=== PATIENT | female | born 2000 | race African-American/Black ===

== ENCOUNTER 2020-02-16 13:52 | Emergency (ER) | payer MEDICAID ==
[~2020-02-16] VITALS: Ht 167.6 cm; Wt 75.0 kg
[2020-02-16] MEDS: ONDANSETRON HCL 4 MG/2 ML VIAL IVP ONE (14:33)
[2020-02-16] MEDS: SODIUM CHLORIDE 0.9% 1,000 ML IV ONE (14:34)
[2020-02-16 14:39] LABS: BASOPHILS % (AUTO) 0.2 % (0.0-2.0); EOSINOPHILS % (AUTO) 1.7 % (1.0-6.0); HEMATOCRIT 40.1 % (36-46); HEMOGLOBIN 13.3 g/dL (12.0-16.0); LYMPHOCYTES # (AUTO) 1.3 K/uL (1.0-4.8); LYMPHOCYTES % (AUTO) 24.2 % (22.0-44.0); MEAN CORPUSCULAR HEMOGLOBIN 28.9 pg (26.0-34.0); MEAN CORPUSCULAR VOLUME 88 fL (80-100); MONOCYTES # (AUTO) 0.9 K/uL (0.1-1.0); MONOCYTES % (AUTO) 17.2 % (2.0-9.0); NEUTROPHILS % (AUTO) 56.7 % (40.0-70.0); PLATELET COUNT (AUTO) 321 K/uL (150-450); RED BLOOD CELL COUNT(AUTO) 4.58 MIL/uL (4.00-5.20); RED CELL DISTRIBUTION WIDTH 14.9 % (11.5-14.5)
[2020-02-16 14:57] LABS: ANION GAP 10 mmol/L (8-16); CALCIUM, TOTAL 9.2 mg/dL (8.8-10.5); CARBON DIOXIDE 24 mmol/L (22-29); CHLORIDE 102 mmol/L (98-107); CREATININE 0.81 mg/dL (0.60-1.30); GLOMERULAR FILTR. RATE CALC > 60 mL/min (>60); GLUCOSE,RANDOM 103 mg/dL (70-110); POTASSIUM 3.5 mmol/L (3.5-5.1); SODIUM SERUM 136 mmol/L (136-145); UREA NITROGEN, BLOOD 11 mg/dL (7-18)
[2020-02-16] MEDS: MAG HYDROX/AL HYDROX/SIMETH ES 30 ML SUSPENSION UDCUP PO ONE (15:12)
[2020-02-16] MEDS: ACETAMINOPHEN 500 MG TABLET PO ONE (15:13)
[2020-02-16 15:21] LABS: ALANINE AMINOTRANSFERASE 17 U/L (12-78); ALBUMIN 3.9 g/dL (3.4-5.0); ALKALINE PHOSPHATASE 92 U/L (46-116); ASPARTATE AMINOTRANSFERASE 20 U/L (15-37); BILIRUBIN,TOTAL 0.4 mg/dL (0.1-1.0); HCG,QUANTITATIVE < 1 mIU/mL (0-6); LIPASE 420 U/L (73-393); TOTAL PROTEIN, SERUM 7.9 g/dL (6.4-8.2)
[2020-02-16 16:18] VITALS: BP 127/78
== END 2020-02-16 16:29 | disposition home or self-care (01) ==
LOC: EMS 14:01
DX: K29.00 Acute gastritis without bleeding (principal); R11.2 Nausea with vomiting, unspecified; E86.0 Dehydration
CPT/HCPCS: 36415; 80053; 83690; 84702; 85025; 96361; 96374; 99283; J2405; J7030

== ENCOUNTER 2023-06-16 17:10 | Emergency (ER) | payer MEDICAID ==
[~2023-06-16] VITALS: Ht 165.1 cm; Wt 109.1 kg
[2023-06-16 19:18] VITALS: BP 128/74; PULSE 69; RESP 18; TEMP 98.6
[2023-06-16] MEDS ORDERED: IBUP-1492 PO (19:19)
== END 2023-06-16 19:51 | disposition home or self-care (01) ==
LOC: EMS 17:10
DX: F41.9 Anxiety disorder, unspecified (principal); R07.89 Other chest pain
CPT/HCPCS: 93005; 99284; Z7502

== ENCOUNTER 2024-08-26 16:31 | Emergency (ER) | payer SELFPAY ==
[~2024-08-26] VITALS: Ht 162.6 cm; Wt 104.5 kg
[~2024-08-26 16:31] MED LIST: ACET-3385 PO; IBUP-1492 PO
[2024-08-26 16:36] VITALS: BP 127/73; PULSE 111; RESP 18; TEMP 99.5; O2SAT 100
[2024-08-26 17:12] LABS: COVID AG,FIA SOURCE NASAL SWAB
[2024-08-26 17:32] LABS: SARS-COV2 (COVID) ANTIGEN,FIA Negative (Negative)
[2024-08-26 17:33] LABS: INFLUENZA TYPE B NEGATIVE FOR TYPE B (NEGATIVE)
[2024-08-26 18:02] LABS: INFLUENZA TYPE A POSITIVE FOR TYPE A (NEGATIVE)
[2024-08-26] MEDS ORDERED: GUAIFDM PO (18:32)
[2024-08-26] MEDS ORDERED: IBUP-1554 PO (18:32)
[2024-08-26] MEDS ORDERED: ACET-66 PO (18:32)
[2024-08-26] MEDS: GuaiFENesin/D-METHORPHAN [SUGAR-FREE] 200-20MG/10 ML SYRUP UDCUP PO ONE (18:43)
[2024-08-26] MEDS: ACETAMINOPHEN 500 MG TABLET PO ONE (18:43)
[2024-08-26] MEDS ORDERED: ALBU18HF12 IH (19:04)
== END 2024-08-26 18:52 | disposition home or self-care (01) ==
LOC: EMS 16:31
DX: J10.1 Influenza due to other identified influenza virus with other respiratory manifestations (principal); Z20.822 Contact with and (suspected) exposure to COVID-19
CPT/HCPCS: 87804; 99283

== ENCOUNTER 2025-04-09 23:49 | Emergency (ER) | payer OTHER ==
[~2025-04-09] VITALS: Ht 162.6 cm; Wt 100.0 kg
[~2025-04-09 23:49] MED LIST changes: -ACET-3385 PO; +ACET-66 PO; +ALBU18HF12 IH; +GUAIFDM PO; -IBUP-1492 PO; +IBUP-1554 PO
[2025-04-10 00:25] LABS: PLATELET COUNT (AUTO) 299 K/uL (150-450); RED BLOOD CELL COUNT(AUTO) 4.08 MIL/uL (4.00-5.20); RED CELL DISTRIBUTION WIDTH 15.4 % (11.5-14.5); WHITE BLOOD COUNT (AUTO) 6.5 K/uL (4.5-11.0)
[2025-04-10 00:32] LABS: CALCIUM, TOTAL 9.5 mg/dL (8.8-10.5); CREATININE 1.02 mg/dL (0.60-1.30); GLOMERULAR FILTR. RATE CALC > 60 mL/min (>60); GLUCOSE,RANDOM 90 mg/dL (70-110); SODIUM SERUM 139 mmol/L (136-145); UREA NITROGEN, BLOOD 12 mg/dL (7-18)
[2025-04-10 00:43] LABS: HCG,QUANTITATIVE < 1 mIU/mL (0-6)
[2025-04-10 00:57] LABS: APPEARANCE,URINE HAZY (CLEAR); GLUCOSE, URINE (UA) NEGATIVE (NEGATIVE); LEUKOCYTE ESTERASE ,URINE LARGE (NEGATIVE); NITRATE,URINE NEGATIVE (NEGATIVE); OCCULT BLOOD,URINE MODERATE (NEGATIVE); SPECIFIC GRAVITIY, URINE 1.032 (1.003-1.030)
[2025-04-10 01:02] LABS: ASPARTATE AMINOTRANSFERASE 20.0 U/L (15-37); TOTAL PROTEIN, SERUM 7.4 g/dL (6.4-8.2)
[2025-04-10 01:14] LABS: SQUAMOUS EPITHELIAL CELL,UR Few /LPF (None Seen)
[2025-04-10] MEDS: KETOROLAC TROMETHAMINE 30 MG/ML VIAL IVP ONE (01:31)
[2025-04-10] MEDS: ONDANSETRON HCL 4 MG/2 ML VIAL IVP ONE (01:31)
[2025-04-10] MEDS: FentaNYL CITRATE PF 100 MCG/2 ML VIAL IVP ONE (01:43)
[2025-04-10] MEDS: CefTRIAXone 1 GM/DEXTROSE 50 ML IV ONE (01:43)
[2025-04-10] MEDS ORDERED: IBUP-1554 PO (02:06)
[2025-04-10] MEDS ORDERED: CEPH-558 PO (02:06)
[2025-04-10] MEDS ORDERED: ONDA-104 PO (02:06)
[2025-04-10 02:17] VITALS: BP 141/83; PULSE 78; RESP 22; TEMP 97.8; O2SAT 100
== END 2025-04-10 02:37 | disposition home or self-care (01) ==
LOC: EMS 23:49
DX: K80.20 Calculus of gallbladder without cholecystitis without obstruction (principal); N39.0 Urinary tract infection, site not specified; R10.11 Right upper quadrant pain; Z79.899 Other long term (current) drug therapy
CPT/HCPCS: 99285; 80048; 80076; 81001; 83690; 84702; 85025; 87086; 36415; 96365; 96375; 76700; J1885; J0696; J3010; J2405

== ENCOUNTER 2025-05-22 18:10 | Emergency (ER) | payer OTHER ==
[~2025-05-22] VITALS: Ht 162.6 cm; Wt 107.0 kg
[~2025-05-22 18:10] MED LIST changes: +CEPH-558 PO; +ONDA-104 PO
[2025-05-22 18:20] VITALS: BP 117/62; PULSE 74; RESP 18; TEMP 98.2; O2SAT 100
[2025-05-22 19:43] LABS: HCG,QUAL URINE NEGATIVE (NEGATIVE)
[2025-05-22 19:44] LABS: APPEARANCE,URINE HAZY (CLEAR); GLUCOSE, URINE (UA) NEGATIVE (NEGATIVE); LEUKOCYTE ESTERASE ,URINE LARGE (NEGATIVE); NITRATE,URINE NEGATIVE (NEGATIVE); OCCULT BLOOD,URINE SMALL (NEGATIVE); SPECIFIC GRAVITIY, URINE 1.033 (1.003-1.030)
[2025-05-22 20:19] LABS: SQUAMOUS EPITHELIAL CELL,UR Few /LPF (None Seen)
[2025-05-22 20:19] LABS: PLATELET COUNT (AUTO) 311 K/uL (150-450); RED BLOOD CELL COUNT(AUTO) 4.04 MIL/uL (4.00-5.20); RED CELL DISTRIBUTION WIDTH 16.2 % (11.5-14.5); WHITE BLOOD COUNT (AUTO) 7.1 K/uL (4.5-11.0)
[2025-05-22 20:29] LABS: CALCIUM, TOTAL 9.2 mg/dL (8.8-10.5); CREATININE 0.77 mg/dL (0.60-1.30); GLOMERULAR FILTR. RATE CALC > 60 mL/min (>60); GLUCOSE,RANDOM 90 mg/dL (70-110); SODIUM SERUM 137 mmol/L (136-145); UREA NITROGEN, BLOOD 14 mg/dL (7-18)
[2025-05-22 20:33] LABS: ASPARTATE AMINOTRANSFERASE 18.0 U/L (15-37); TOTAL PROTEIN, SERUM 7.5 g/dL (6.4-8.2)
[2025-05-22] MEDS: SODIUM CHLORIDE 0.9% 1,000 ML IV ONE (22:19)
[2025-05-22] MEDS: FAMOTIDINE 20 MG/2 ML VIAL IVP ONE (22:19)
[2025-05-22] MEDS: CEPHALEXIN MONOHYDRATE 500 MG CAPSULE PO ONE (23:37)
[2025-05-23] MEDS ORDERED: CEPH-558 PO (00:51)
[2025-05-23] MEDS ORDERED: FAMO20 PO (00:51)
== END 2025-05-23 01:08 | disposition home or self-care (01) ==
LOC: EMS 18:24
DX: K80.70 Calculus of gallbladder and bile duct without cholecystitis without obstruction (principal); N39.0 Urinary tract infection, site not specified
CPT/HCPCS: 99285; 96374; 96361; 76705; 80048; 80076; 81001; 83690; 84702; 84703; 85025; 87086; 36415; J3490

== ENCOUNTER 2025-06-18 22:26 | Emergency (ER) | payer OTHER ==
[~2025-06-18] VITALS: Ht 162.6 cm; Wt 108.5 kg
[~2025-06-18 22:26] MED LIST changes: +FAMO20 PO
[2025-06-19 01:03] LABS: PLATELET COUNT (AUTO) 301 K/uL (150-450); RED BLOOD CELL COUNT(AUTO) 4.16 MIL/uL (4.00-5.20); RED CELL DISTRIBUTION WIDTH 15.7 % (11.5-14.5); WHITE BLOOD COUNT (AUTO) 6.4 K/uL (4.5-11.0)
[2025-06-19 01:15] LABS: CALCIUM, TOTAL 9.2 mg/dL (8.8-10.5); CREATININE 0.67 mg/dL (0.60-1.30); GLOMERULAR FILTR. RATE CALC > 60 mL/min (>60); GLUCOSE,RANDOM 77 mg/dL (70-110); SODIUM SERUM 140 mmol/L (136-145); UREA NITROGEN, BLOOD 15 mg/dL (7-18)
[2025-06-19 01:25] LABS: ASPARTATE AMINOTRANSFERASE 16 U/L (15-37); HCG,QUANTITATIVE < 1 mIU/mL (0-6); TOTAL PROTEIN, SERUM 7.4 g/dL (6.4-8.2)
[2025-06-19] MEDS: SODIUM CHLORIDE 0.9% 1,000 ML IV ONE (01:38)
[2025-06-19 03:14] VITALS: BP 129/65; PULSE 71; RESP 14; TEMP 97.3; O2SAT 100
== END 2025-06-19 03:53 | disposition home or self-care (01) ==
LOC: EMS 22:30
DX: A08.4 Viral intestinal infection, unspecified (principal); N89.8 Other specified noninflammatory disorders of vagina; Z79.899 Other long term (current) drug therapy
CPT/HCPCS: 99283; 80048; 80076; 83690; 84702; 84703; 85025; 36415; 96360; J7030